=== PATIENT | male | born 1955 | race Two or more races ===

== ENCOUNTER 2024-03-23 16:30 | Emergency (ER) | payer MEDICARE, MEDICAID ==
[~2024-03-23] VITALS: Ht 167.6 cm; Wt 103.4 kg
[2024-03-23 18:13] VITALS: TEMP 99
[2024-03-23] MEDS: ceFAZolin 2 GM/D5W50ml 50 ML IV ONE (18:59)
[2024-03-23] MEDS: LIDOCAINE 1% HCL (LOCAL ANESTH.) INJ 20ML MDV ONE (19:12)
[2024-03-23] MEDS: ONDANSETRON HCL 4 MG/2 ML VIAL IV ONE (19:19)
[2024-03-23] MEDS: MORPHINE SULFATE 4 MG/ML SYR/VIAL IV ONE (19:20)
[2024-03-23] MEDS: LIDOCAINE 1% HCL (LOCAL ANESTH.) INJ 20ML MDV ID ONE (19:40)
[2024-03-23 19:50] VITALS: O2SAT 94
[2024-03-23 20:08] VITALS: BP 166/63; PULSE 67; RESP 18
[2024-03-23] MEDS: TETANUS-DIPTH-ACEL PERTUSSIS 0.5ML SYR Tdap IM ONE (20:15)
[2024-03-23] MEDS ORDERED: HYDR-4902 PO (20:22)
[2024-03-23] MEDS ORDERED: CEPH500C PO (20:22)
== END 2024-03-23 21:00 | disposition home or self-care (01) ==
LOC: ER 16:39
DX: S61.012A Laceration without foreign body of left thumb without damage to nail, initial encounter (principal); W26.8XXA Contact with other sharp object(s), not elsewhere classified, initial encounter; Y93.89 Activity, other specified; Y92.89 Other specified places as the place of occurrence of the external cause; Y99.8 Other external cause status
CPT/HCPCS: 12002; 73140; 90471; 90715; 96365; 96375; 99284; J0690; J2001; J2270; J2405; 12042